=== PATIENT | male | born 1950 | race Caucasian/White ===

== ENCOUNTER → 2016-12-23 | Outpatient (CLI) | payer BC ==
[~2016-12-23] MED LIST: ASCO10004 PO; CHOL200012 PO; SIMV20TA3 PO; testosterone
== END | disposition home or self-care (01) ==
LOC: STAR 12:48
PROVIDERS: ATTEND Surgery
DX: Z01.818 Encounter for other preprocedural examination (principal); K43.2 Incisional hernia without obstruction or gangrene
CPT/HCPCS: 93005

== ENCOUNTER 2017-01-04 10:51 | Observation (INO) | payer BC ==
[~2017-01-04] VITALS: Ht 182.9 cm; Wt 94.0 kg
[2017-01-04] MEDS ORDERED: LACTATED RINGERS 1,000 ML IV SCH (11:14)
[2017-01-04 11:15] VITALS: BP 125/82
[2017-01-04] MEDS ORDERED: LIDOCAINE 0.5%-EPI 1:200K, 50ML ONE (12:33)
[2017-01-04] MEDS ORDERED: EPINEPHRINE 1 MG/ML, 1ML ONE (12:33)
[2017-01-04] MEDS ORDERED: BUPIVACAINE/PF 0.5% ONE (12:33)
[2017-01-04] MEDS ORDERED: MIDAZOLAM 1 MG/ML, 2ML ONE (12:45)
[2017-01-04] MEDS ORDERED: FENTANYL PF 250 MCG/5ML ONE ×2 (12:45→13:12)
[2017-01-04] MEDS ORDERED: BUPIVACAINE/PF 0.5% INFIL ONE (13:29)
[2017-01-04] MEDS ORDERED: EPINEPHRINE 1 MG/ML, 1ML INFIL ONE (13:30)
[2017-01-04] MEDS ORDERED: MIDAZOLAM 1 MG/ML, 2ML IV PRN (14:00)
[2017-01-04] MEDS ORDERED: FENTANYL PF 100 MCG/2ML IV PRN (14:00)
[2017-01-04] MEDS ORDERED: OXYcodone 5 MG/5 ML ORAL.SOL UDC PO PRN (14:00)
[2017-01-04] MEDS ORDERED: EPHEDRINE 50 MG/ML, 1ML IVPush PRN (14:00)
[2017-01-04] MEDS ORDERED: PROMETHAZINE 25 MG/ML, 1ML IV PRN (14:00)
[2017-01-04] MEDS ORDERED: ACETAMINOPHEN 325 MG TABLET PO PRN (14:00)
[2017-01-04] MEDS ORDERED: ONDANSETRON 2MG/ML, 2ML IVPush PRN ×2 (14:00→18:00)
[2017-01-04] MEDS ORDERED: HYDROmorphone 1 MG/ML, 1ML ONE ×2 (14:54→15:30)
[2017-01-04] MEDS: HYDROmorphone 1 MG/ML, 1ML IV PRN ×6 (14:58→15:46)
[2017-01-04] MEDS ORDERED: ACETAMINOPHEN 650 MG/20.3 ML UDC ONE (15:21)
[2017-01-04] MEDS ORDERED: OXYcodone 5 MG/5 ML ORAL.SOL UDC ONE (15:22)
[2017-01-04] MEDS ORDERED: DEXAMETHASONE 4 MG/ML, 1ML ONE (15:42)
[2017-01-04] MEDS ORDERED: ONDANSETRON 2MG/ML, 2ML ONE (15:42)
[2017-01-04] MEDS ORDERED: SUCCINYLCHOLINE 20 MG/ML, 10ML ONE (15:42)
[2017-01-04] MEDS ORDERED: CEFAZOLIN 1,000 MG ONE (15:42)
[2017-01-04] MEDS ORDERED: PROPOFOL 10 MG/ML, 20ML ONE (15:42)
[2017-01-04] MEDS ORDERED: DIPHENHYDRAMINE 50 MG/ML, 1ML IVPush PRN (18:00)
[2017-01-04] MEDS ORDERED: KETOROLAC 30 MG/1 ML IVPush PRN (18:00)
[2017-01-04] MEDS ORDERED: HYDROmorphone 2 MG/ML, 1ML IV PRN (18:00)
[2017-01-04] MEDS: LACTATED RINGERS 1,000 ML IV SCH ×2 (18:00→20:17)
[2017-01-04 19:58] VITALS: BP 111/68
[2017-01-04] MEDS: OXYcodone/APAP 5/325MG TABLET PO PRN (20:17)
[2017-01-04 23:00] VITALS: BP 121/77
[2017-01-05] MEDS: OXYcodone/APAP 5/325MG TABLET PO PRN ×3 (00:19→09:07)
[2017-01-05 03:47] VITALS: BP 100/59
[2017-01-05 07:43] VITALS: BP 117/73
[2017-01-05] MEDS ORDERED: PNEUMOCOCCAL 23 VACCINE IM-VACC ONE (08:30)
[2017-01-05] MEDS ORDERED: MELOXICAM 15 MG TABLET PO SCH (09:00)
[2017-01-05] MEDS: LACTATED RINGERS 1,000 ML IV SCH (09:11)
[2017-01-05] MEDS ORDERED: OXYC5TAB2 PO (12:31)
[2017-01-05] MEDS ORDERED: MELO7.5T5 PO (12:32)
[2017-01-05 13:29] VITALS: BP 125/80
[2017-01-05] MEDS ORDERED: SIMVASTATIN 20 MG TABLET PO SCH (21:00)
== END 2017-01-05 14:50 | disposition home or self-care (01) ==
LOC: OUT 10:51 → 4NOR 17:09 → OUT 23:07 → 4NOR 23:07
PROVIDERS: ADMIT Surgery; ATTEND Surgery
DX: K43.2 Incisional hernia without obstruction or gangrene (principal); Z23 Encounter for immunization
CPT/HCPCS: 49652; 90471; 90732; C1727; C1729; C1781; G0378; J0171; J0330; J0690; J1100; J1170; J2250; J2405; J2704; J3010; J3490; J7120; S2900